=== PATIENT | male | born 1985 | race Caucasian/White ===

== ENCOUNTER 2025-01-24 14:43 | Inpatient (IN) | payer OTHER ==
[2025-01-24 16:16] VITALS: RESP 16; BMI 22.0
[2025-01-24] MEDS ORDERED: POLYETHYLENE GLYCOL (HEALTHYLAX) 3350 17 GM PACKET PO PRN (16:50)
[2025-01-24] MEDS ORDERED: NICOTINE POLACRILEX 2 MG LOZENGE BC PRN (16:50)
[2025-01-24] MEDS ORDERED: MAG HYDROX/AL HYDROX/SIMETH 30 ML UNIT-DOSE CUP PO PRN (16:50)
[2025-01-24] MEDS ORDERED: ACETAMINOPHEN 325 MG TABLET (FP) PO PRN (16:50)
[2025-01-24] MEDS ORDERED: BENZONATATE 200 MG CAPSULE PO PRN (16:50)
[2025-01-24] MEDS ORDERED: IBUPROFEN 600 MG TABLET (FP) PO PRN (16:50)
[2025-01-24] MEDS ORDERED: NICOTINE POLACRILEX 2 MG GUM BUC PRN (16:50)
[2025-01-24] MEDS ORDERED: BENZOCAINE/MENTHOL (CHLORASEPTIC ) LOZENGE MM PRN (16:50)
[2025-01-24] MEDS ORDERED: BISMUTH SUBSALICYLATE 524 MG/30 ML PO PRN (16:50)
[2025-01-24] MEDS ORDERED: ONDANSETRON *ODT* 4 MG TABLET SL PRN (16:50)
[2025-01-24] MEDS ORDERED: NALOXONE (NARCAN) HCL 4 MG/0.1 ML SPRAY NS PRN (16:50)
[2025-01-24] MEDS ORDERED: IBUPROFEN 400 MG TABLET (FP) PO PRN (16:50)
[2025-01-24] MEDS ORDERED: DICYCLOMINE HCL 10 MG CAPSULE PO PRN (16:50)
[2025-01-24] MEDS ORDERED: LOPERAMIDE HCL 2 MG CAPSULE PO PRN (16:50)
[2025-01-24] MEDS ORDERED: METHOCARBAMOL 500 MG TABLET PO PRN (16:50)
[2025-01-24] MEDS ORDERED: guaiFENesin 600 MG TABLET.ER (FP) PO PRN (16:50)
[2025-01-24] MEDS ORDERED: P-EPHED 60MG/TRIPROLIDI 2.5MG TABLET PO PRN (16:50)
[2025-01-24] MEDS ORDERED: hydrOXYzine PAMOATE 25 MG CAPSULE (FP) PO PRN (16:50)
[2025-01-24] MEDS ORDERED: MAGNESIUM HYDROX 2400MG/30ML ORAL SUSPENSION 30 ML CUP PO PRN (16:50)
[2025-01-24] MEDS: MELATONIN 5 MG TABLETS PO SCH (22:18)
[2025-01-24] MEDS: THIAMINE 100 MG TABLET PO SCH (22:18)
[2025-01-24] MEDS: SULFAMETHOXAZOLE/TRIMETHOPRIM 800MG/160MG D.S. TABLET PO SCH (22:18)
[2025-01-25] MEDS: VITAMINS A AND D TOPICAL OINTMENT TP SCH
[2025-01-25 09:22] VITALS: BP 126/80; PULSE 58; TEMP 97.4
[2025-01-25] MEDS: NICOTINE 14 MG/24 HOURS TOPICAL PATCH TD SCH (09:38)
[2025-01-25] MEDS: PRENATAL VITAMINS W/ FOLIC ACID TABLET (FP) PO SCH (09:40)
[2025-01-25] MEDS ORDERED: SUVOREXANT 10 MG TABLET PO PRN (22:00)
== END 2025-01-25 10:45 | disposition home or self-care (01) | DRG 773 ==
LOC: YASAS 14:43 → Y3N 18:46
PROVIDERS: ADMIT Neuromusculoskeletal Medicine & OMM; ATTEND Allergy & Immunology
PROC: HZ2ZZZZ Detoxification Services for Substance Abuse Treatment (ICD-10-PCS; principal; 2025-01-23)
DX: F11.20 Opioid dependence, uncomplicated (principal); F17.210 Nicotine dependence, cigarettes, uncomplicated; F19.282 Other psychoactive substance dependence with psychoactive substance-induced sleep disorder; F90.9 Attention-deficit hyperactivity disorder, unspecified type; I10 Essential (primary) hypertension